=== PATIENT | male | born 1980 | race Caucasian/White ===

== ENCOUNTER 2021-01-15 07:10 | Emergency (ER) | payer MEDICAID ==
[~2021-01-15] VITALS: Ht 182.9 cm; Wt 88.9 kg
[2021-01-15 07:16] VITALS: BP 141/68
--- NOTE | 2021-01-15 07:19 | NUR ---
PT TAKEN TO [facility]IED BY [facility].
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
--- NOTE | 2021-01-15 08:02 | NUR ---
PT TAKEN TO XR VIA W/C.
--- NOTE | 2021-01-15 08:05 | NUR ---
PT TAKEN TO C VIA W/C.
[2021-01-15] MEDS ORDERED: IBUPROFEN 600 MG TAB PO ONE (08:15)
[2021-01-15] MEDS ORDERED: IBUP-2213 PO (08:21)
[2021-01-15] MEDS ORDERED: ACET-10509 PO (08:21)
[2021-01-15 08:38] VITALS: BP 141/68
--- NOTE | 2021-01-15 08:38 | NUR ---
PATIENT BIB [facility] POLICE DEPT. PATIENT EXAMINED BY DR. TIRADO. PATIENT MEDICALLY CLEARED AND RELEASED IN CUSTODY IN STABLE CONDITION. ORIGINAL PRE-BOOK FORM GIVEN TO OFFICER [facility] #[id number].
== END 2021-01-15 08:38 ==
LOC: MED 07:10
DX: S42.035A Nondisplaced fracture of lateral end of left clavicle, initial encounter for closed fracture (principal); S60.511A Abrasion of right hand, initial encounter; F10.129 Alcohol abuse with intoxication, unspecified; R07.9 Chest pain, unspecified; Z79.899 Other long term (current) drug therapy; Z79.1 Long term (current) use of non-steroidal anti-inflammatories (NSAID); V89.2XXA Person injured in unspecified motor-vehicle accident, traffic, initial encounter; Y93.89 Activity, other specified; Y92.410 Unspecified street and highway as the place of occurrence of the external cause; Y99.8 Other external cause status
CPT/HCPCS: 71045; 99283